=== PATIENT | female | born 1960 | race Caucasian/White ===

== ENCOUNTER 2019-05-17 18:10 | Outpatient (CLI) | payer OTHER, SELFPAY ==
--- NOTE | ~2019-05-17 | XR_ITS ---
EXAMINATION: XR chest 2V 05/17/2019 18:29 INDICATION: Cough and chest tightness. History of asthma. PROCEDURE: 2 view chest COMPARISON: No prior studies for comparison. FINDINGS: The lungs are clear. The cardiomediastinal silhouette is within normal limits. There are no pleural effusions. There is no pneumothorax suspected. IMPRESSION: 1: NO ACUTE CARDIOPULMONARY DISEASE. Reviewed, dictated and finalized at location A. COOPER HELPER
== END 2019-05-17 18:11 | disposition home or self-care (01) ==
LOC: ANHIMG 18:14
PROVIDERS: PCP Family Medicine; Visit Provider Physician Assistant Medical
DX: R05 Cough (principal)
CPT/HCPCS: 71046

== ENCOUNTER 2020-06-05 12:29 | Outpatient (CLI) | payer OTHER, SELFPAY ==
--- NOTE | 2020-06-05 | ECG_ITS ---
Measurements Intervals [place] Rate: 81 P: 61 PA: 200 QRS: 36 QRSD: 90 T: 51 QT: 358 QTc: 417 Interpretive Statements SINUS RHYTHM POSSIBLE LEFT ATRIAL ENLARGEMENT INCOMPLETE RIGHT BUNDLE BRANCH BLOCK BORDERLINE ECG Electronically Signed On 06-05-2020 13:54:57 [facility] by Devin Casper D.O.
[2020-06-05 13:03] LABS: Hematocrit 45.5 % (37.0-47.0); Hemoglobin 14.5 g/dL (12.0-15.0)
[2020-06-05 13:11] LABS: Urine Cotinine NEGATIVE
[2020-06-05 13:12] LABS: Albumin Level 4.2 g/dL (3.5-5.1); Estimated Glomerular Filt Rate 57
[2020-06-05 13:31] LABS: Hemoglobin A1C 10.8 % (<5.7)
== END 2020-06-05 12:30 | disposition home or self-care (01) ==
PROVIDERS: PCP Family Medicine; Visit Provider Orthopaedic Surgery
DX: M17.11 Unilateral primary osteoarthritis, right knee (principal); E03.9 Hypothyroidism, unspecified; E78.2 Mixed hyperlipidemia; R73.03 Prediabetes; I45.10 Unspecified right bundle-branch block
CPT/HCPCS: 80307; 82040; 82565; 83036; 85014; 85018; 93005

== ENCOUNTER 2020-07-11 10:30 | Outpatient (CLI) | payer OTHER, SELFPAY ==
[2020-07-11 10:58] LABS: Hemoglobin A1C 8.3 % (<5.7)
[2020-07-11 11:00] LABS: Alanine Aminotransferase 43 U/L (4-35); Albumin Level 4.5 g/dL (3.5-5.1); Alkaline Phosphatase 68 U/L (38-126); Anion Gap 4 mmol/L (8-16); Aspartate Amino Transferase 54 U/L (14-36); Blood Urea Nitrogen 13 mg/dL (7-17); Calcium 9.3 mg/dL (8.4-10.2); Carbon Dioxide 34 mmol/L (22-30); Chloride 103 mmol/L (98-107); Estimated Glomerular Filt Rate 51; Glucose 107 mg/dL (65-105); Sodium 141 mmol/L (137-145)
== END 2020-07-11 10:31 | disposition home or self-care (01) ==
PROVIDERS: PCP Family Medicine; Visit Provider Family Medicine
DX: R73.9 Hyperglycemia, unspecified (principal)
CPT/HCPCS: 36415; 80053; 83036

== ENCOUNTER 2020-07-26 08:35 | Outpatient (CLI) | payer OTHER, SELFPAY ==
--- NOTE | ~2020-07-26 | NM_ITS ---
EXAMINATION: NM sam stress w perfusion DATE: 07/26/2020 12:40 INDICATION: Cardiomegaly. TECHNIQUE: Rest images were obtained following intravenous administration of 9.8 mCi Tc99m tetrofosmi n (Myoview). The patient was infused intravenously with Lexiscan (regadenoson). Then, 30.1 mCi Tc99m tetrofosmin (Myoview) was administered intravenously, and supine and prone stress images were obtaine d. Data was reconstructed into short axis and horizontal and vertical long axis SPECT images. Gated S PECT images were also obtained. COMPARISON: Myocardial perfusion imaging 05/09/2016 FINDINGS: There is a moderate-sized, mild, fixed perfusion defect involving mid anteroseptal and apic al to mid anterior segments of left ventricle, consistent with infarct. No reversible component to herrera ggest ischemia. There is no segmental wall motion abnormality. Left ventricular ejection fraction m easures 70%. IMPRESSION: 1. Moderate-sized area of mild infarct involving mid anteroseptal and apical to mid anterior segments of left ventricle. 2. Normal left ventricular ejection fraction measuring 70%. Reviewed, dictated and finalized at location A.
--- NOTE | 2020-07-26 08:48 | EST_ITS ---
Patient Info Name: Kiki Horowitz Age: 59 years : 1960 Gender: Female Ht: 66 in Wt: 210 lbs BSA: 2.14 m2 Exam Date: 07/26/2020 10:06 AM Exam Location: [facility] Stress Patient Status: Outpatient Admit Date: 07/26/2020 Staff Ordering Physician: Marv Chavez MD Attending Provider: Marv Chavez MD Exercise Technologist: Montserrat Singh CT Exercise Physician: Devin Casper DO Exam Type: CA stress sam w NM Study Info Indications I51.7 - Cardiomegaly Z01.810 - Encounter for preprocedural cardiovascular examination A regadenoson stress test was performed. Summary 1. 1. Negative lexiscan stress test for ischemic ST changes by ECG criteria. 2. 2. Stable hemodynamics throughout the test. 3. 3. Nuclear scan to follow and will be reported separately. Please correlate with it. 4. 4. Patient informed of the above results. Protocol: Lexiscan Stress ECG Details Stage: REST Duration (min): 12 min : 45 sec HR (bpm): 82 SBP (mmHg): 103 DBP (mmHg): 80 Stage: STAGE 1 Duration (min): 1 min : 0 sec HR (bpm): 96 SBP (mmHg): 106 DBP (mmHg): 81 Stage: RECOVERY Duration (min): 1 min : 0 sec HR (bpm): 110 SBP (mmHg): 106 DBP (mmHg): 81 Stage: RECOVERY Duration (min): 2 min : 0 sec HR (bpm): 106 SBP (mmHg): 106 DBP (mmHg): 81 Stage: RECOVERY Duration (min): 2 min : 57 sec HR (bpm): 102 SBP (mmHg): 101 DBP (mmHg): 72 Rest HR: 82 bpm Peak HR: 110 bpm Rest Sys BP: 103 mmHg Peak Sys BP: 106 mmHg Max Pred HR: 161 bpm % Max Pred HR: 68 % Target HR: 137 bpm Max RPP: 11,660 bpm*mmHg Termination Reason: Completed protocol Cardiac Symptoms: Shortness of breath Total Time: 1 min : 0 sec Rest Grey BP: 80 mmHg Peak Grey BP: 81 mmHg Total Dose: 0.4 mg Resting ECG Sinus rhythm. Stress ECG No ST changes. Arrhythmias None. Report Signatures
== END 2020-07-26 08:36 | disposition home or self-care (01) ==
PROVIDERS: PCP Family Medicine; Visit Provider Family Medicine
DX: I51.7 Cardiomegaly (principal)
CPT/HCPCS: 78452; 93017; A9502; J2785

== ENCOUNTER 2021-08-14 11:11 | Outpatient (CLI) | payer OTHER, SELFPAY ==
[2021-08-14 12:06] LABS: Alanine Aminotransferase 38 U/L (6-35); Albumin Level 4.3 g/dL (3.5-5.1); Alkaline Phosphatase 100 U/L (38-126); Anion Gap 11 mmol/L (8-16); Aspartate Amino Transferase 42 U/L (14-36); Bilirubin,Total 0.6 mg/dL (0.2-1.3); Blood Urea Nitrogen 17 mg/dL (7-17); Calcium 8.9 mg/dL (8.4-10.2); Carbon Dioxide 28 mmol/L (22-30); Chloride 100 mmol/L (98-107); Cholesterol 141 mg/dL (0-200); Estimated Glomerular Filt Rate > 60; Glucose 314 mg/dL (65-110); HDL Direct 36 mg/dL; Potassium 4.7 mmol/L (3.4-5.0); Sodium 139 mmol/L (137-145); Triglycerides 174 mg/dL (<150)
[2021-08-14 12:17] LABS: LDL Cholesterol Direct 69 mg/dL
[2021-08-14 12:37] LABS: Hemoglobin A1C 10.8 % (<5.7)
== END 2021-08-14 11:12 | disposition home or self-care (01) ==
LOC: ANHLAB 11:14
PROVIDERS: PCP Family Medicine; Visit Provider Family Medicine
DX: E78.2 Mixed hyperlipidemia (principal); E66.9 Obesity, unspecified
CPT/HCPCS: 36415; 80053; 80061; 83036; 84443

== ENCOUNTER → 2022-09-08 10:09 | Outpatient (CLI) | payer OTHER, SELFPAY ==
--- NOTE | ~2022-09-08 | MR_ITS ---
EXAMINATION: MR shoulder LT wo con DATE: 09/08/2022 11:06 INDICATION: Left shoulder pain. TECHNIQUE: Magnetic resonance imaging (MRI) of the left shoulder was performed without intravenous co ntrast. Sequences included axial PD-weighted FS FSE, coronal oblique PD-weighted FS FSE and T2-weight ed FS FSE, and sagittal oblique T2-weighted FS FSE and T1-weighted FSE. COMPARISON: None. FINDINGS: Coracoacromial arch: The acromion undersurface is curved in morphology with anterior hook (type III). There is severe acro mioclavicular joint osteoarthritis. There is mild subacromial/subdeltoid bursitis. Rotator cuff: There is mild supraspinatus tendinopathy. There is severe distal infraspinatus tendinopathy. There is mild teres minor tendinopathy. There is mild subscapularis tendinopathy. There is no asymmetric fatt y atrophy of the rotator cuff muscle bellies. Biceps tendon and glenoid labrum: Biceps tendon is in bicipital groove. There is mild intra-articular biceps tendinopathy. There is mul tifocal tearing of the glenoid labrum. Fluid: There is a moderate-sized glenohumeral joint effusion. Bones/cartilage: There is partial-thickness cartilage loss of humeral head, deep posteriorly. There is partial-thickne ss cartilage loss of glenoid, deep at the central articular surface. Osteophytes are noted. IMPRESSION: 1. Severe rotator cuff tendinopathy. No tear. 2. Moderate glenohumeral joint chondrosis. 3. Severe acromioclavicular joint osteoarthritis. 4. Moderate-sized glenohumeral joint effusion. 5. Mild intra-articular biceps tendinopathy. 6. Mild subacromial/subdeltoid bursitis. Reviewed, dictated and finalized at location A.
== END ==
PROVIDERS: PCP Family Medicine; Visit Provider Physician Assistant
DX: M19.012 Primary osteoarthritis, left shoulder (principal); M75.52 Bursitis of left shoulder; M25.412 Effusion, left shoulder
CPT/HCPCS: 73221

== ENCOUNTER 2022-10-15 06:18 | Day surgery (SDC) | payer OTHER, SELFPAY ==
[2022-09-25 13:32] VITALS: BMI 37.9
[2022-10-02 08:14] VITALS: BMI 37.0
--- NOTE | 2022-10-15 06:07 | PM.HPGS ---
History of Present Illness History of Present Illness Consent: Risks, benefits, and alternatives have been discussed and questions answered. Patient agrees to proceed with procedure. Chief complaint: Lesion Upper Lip Narrative: Kiki Horowitz is a 61 year old female Review of Systems Review of Systems: All systems reviewed & are unremarkable except as noted in HPI and below Constitutional: Constitutional: Reports as per HPI Eyes: Eyes: Reports as per HPI ENT: Reports as per HPI Cardiovascular: Cardiovascular: Reports as per HPI Respiratory: Respiratory: Reports as per HPI Gastrointestinal: Gastrointestinal: Reports as per HPI [facility] Past Medical History Medical History Abnormal nuclear stress test Acute rheumatoid arthritis Acute stasis dermatitis of left lower extremity Allergy to iodinated contrast Chest pain COVID-19 9.19.20 Depression Family history of malignant neoplasm of breast Generalized anxiety disorder Graves disease Hypothyroid Meniere disease Mixed hyperlipidemia Obesity (BMI 30-39.9) Osteoarthritis of right knee Prediabetes Preop cardiovascular exam Primary osteoarthritis of right hip Restless leg syndrome 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 (01/07/18) Surgical History Surgical History H/O thyroidectomy (~1976) History of (~1980) History of (~1992) History of eyelid surgery History of foot surgery (~1981) History of foot surgery (~1983) History of hysterectomy History of tonsillectomy (~1969) History of total left hip arthroplasty (~11/24/17) History of total left knee replacement (~05/26/17) Presence of left artificial hip joint Presence of left artificial knee joint Family History Family History Grandparent Diabetes mellitus Family history of cardiovascular disease Family history of malignant neoplasm of breast Mother Depression Sibling Depression Father Family history of cardiovascular disease Other Family history of arthritis Family history of congenital heart disease Family history of malignant neoplasm Family history of thyroid disease Social History Social History Social History: Caffeine- coffee occasionally Smoking status: Never smoker Second hand tobacco smoke exposure: No Smoking end date: 03/30/80 Alcohol intake: current Alcohol use details: rarely Substance use: never Substance use type: does not use Lack of Transportation: No Lack of Food: Never True Current Housing: I Have Housing Concerned About Future Housing: No Difficulty Paying Gas/Electric Bills: No Difficulty Paying for Meds: No Currently Unemployed: No Education: High School Diploma/GED Difficulty w/ Childcare or Family Care: No Living arrangements: with family Spiritual care concerns: No Meds Home Medications and Allergies Home Medications Medication Instructions Recorded Confirmed Type albuterol sulfate 90 mcg/actuation 2 inhalation inhalation Q4H PRN 05/18/19 10/02/22 Rx aerosol inhaler (ProAir HFA) shortness of breath or wheezing #8.5 grams trazodone 100 mg tablet See Rx Instructions PO DAILY PRN 10/31/20 10/02/22 Rx insomnia #90 tabs triamcinolone acetonide 0.1 % 1 applic topical TID PRN itching 05/10/21 10/02/22 Rx topical cream #80 grams metformin 500 mg tablet,extended 1,000 mg PO DAILY #180 tabs 08/16/21 10/02/22 Rx release 24hr diclofenac sodium 75 mg 75 mg PO BID #180 tabs 03/13/22 10/02/22 Rx tablet,delayed release duloxetine 60 mg capsule,delayed 60 mg PO BID #180 caps 03/13/22 10/02/22 Rx release (Cymbalta) levothyroxine 175 mcg tablet 175 mcg PO DAILY #90 tabs 03/13/22 10/02/22 Rx tramadol 50 mg tablet 50
--- NOTE | 2022-10-15 06:12 | WPDHPUPDATE1 ---
History and Physical Update Update Date/Time: 10/15/22 06:12 History and Physical has been reviewed, including an updated exam of the patient. There are NO changes in the patient's condition. Risks, benefits, and alternatives have been discussed and questions answered. Patient agrees to proceed with procedure.
[2022-10-15 06:55] VITALS: BP 138/89; PULSE 108; RESP 16; TEMP 37.1; O2SAT 93
[2022-10-15 07:00] VITALS: BMI 37.8
[2022-10-15 07:20] VITALS: BP 147/90; PULSE 94; RESP 16; O2SAT 96
[2022-10-15 07:25] VITALS: PULSE 94
[2022-10-15] MEDS: LIDOCAINE HCL 1% LOCAL INJ 20 ML VIAL INFILTRATE (07:25)
[2022-10-15 07:30] VITALS: BP 134/90; PULSE 97; RESP 12; O2SAT 97
--- NOTE | 2022-10-15 07:36 | W.PM.PROC2 ---
Procedure Note - Detailed Date of Procedure 10/15/22 Pre-op Diagnosis Lesion Upper Lip Post-op Diagnosis Same Procedure Performed excision cystic lesion right upper lip Surgeon Ubaldo Bautista MD Anesthesia Local Indications cystic lesion upper lip Findings cystic lesion upper lip Description of Procedure after induction of local anesthesia with 1% xylocaine elliptical incision was made around the cystic lesion was excised hemostasis was obtained with bipolar electrocautery and closed with 250 chromic Estimated Blood Loss 0 Pathology Yes Complications No immediate complications Condition Stable Disposition Same day
[2022-10-15 07:42] VITALS: BP 146/101; PULSE 85; RESP 20; O2SAT 100
== END 2022-10-15 07:50 | disposition home or self-care (01) ==
PROVIDERS: PCP Family Medicine; Visit Provider Otolaryngology
PROC: (CPT 40810; principal; 2022-10-15 07:30)
DX: K13.0 Diseases of lips (principal)
CPT/HCPCS: 11440

== ENCOUNTER 2022-10-15 09:00 | Outpatient (NON) | payer OTHER, SELFPAY | END 2022-10-15 09:01 | disposition home or self-care (01) | PROVIDERS: PCP Family Medicine; Visit Provider Otolaryngology | DX: K13.0 Diseases of lips (principal) | CPT/HCPCS: 88305 ==

== ENCOUNTER 2022-10-23 19:45 | Outpatient (NON) | payer OTHER, SELFPAY | END 2022-10-23 19:46 | disposition home or self-care (01) | LOC: ANHLAB 19:45 | PROVIDERS: PCP Family Medicine; Visit Provider Physician Assistant | DX: N39.0 Urinary tract infection, site not specified (principal) | CPT/HCPCS: 87086; 87088 ==

== ENCOUNTER 2023-02-04 12:07 | Outpatient (NON) | payer OTHER, SELFPAY | END 2023-02-04 12:08 | disposition home or self-care (01) | LOC: ANHGOSHLAB 12:09 | PROVIDERS: PCP Family Medicine; Visit Provider Family Medicine | DX: R31.9 Hematuria, unspecified (principal) | CPT/HCPCS: 87086; J2704 ==

== ENCOUNTER 2023-03-30 12:26 | Outpatient (CLI) | payer OTHER, SELFPAY ==
--- NOTE | ~2023-03-30 | XR_ITS ---
EXAM: XR hip RT 2V w AP pelvis DATE: 03/30/2023 12:52 HISTORY: M25.551 - Pain in right hip, CHRONIC . COMPARISON: 09/19/2019, images only. FINDINGS: Decreased mineralization. No fracture or dislocation. No lytic or blastic lesion. Lumbar d egenerative disc disease. Moderate right hip osteoarthritis. Partially visualized uncomplicated appea ring left hip arthroplasty hardware. No erosion or periosteal change. Soft tissues within normal limi ts. IMPRESSION: No acute osseous finding in the right hip. Reviewed, dictated and finalized at location K. EDGER
--- NOTE | ~2023-03-30 | XR_ITS ---
EXAM: XR knee RT min 4V DATE: 03/30/2023 12:52 HISTORY: M17.11 - Unilateral primary osteoarthritis, rt knee. CHRONIC . COMPARISON: 09/08/2022, images only. FINDINGS: Decreased mineralization. No fracture or dislocation. Cortical irregularity in the lateral cortex of the proximal fibula which is a chronic finding, presumably old healed fracture or burnt ou t benign bone lesion. No lytic or blastic lesion. Tricompartmental right knee osteoarthritis, severe in the medial compartment. No erosion or periosteal change. Soft tissues within normal limits. IMPRESSION: No acute osseous finding in the right knee. Reviewed, dictated and finalized at location K. HING PRESS OPERATOR
== END 2023-03-30 12:27 | disposition home or self-care (01) ==
LOC: ANHIMG 12:28
PROVIDERS: PCP Family Medicine; Visit Provider Orthopaedic Surgery
DX: M25.551 Pain in right hip (principal); M17.11 Unilateral primary osteoarthritis, right knee
CPT/HCPCS: 73502; 73564

== ENCOUNTER 2023-05-02 10:03 | Outpatient (CLI) | payer OTHER, SELFPAY ==
[2023-05-02 11:26] LABS: Alanine Aminotransferase 47 U/L (6-35); Albumin Level 4.3 g/dL (3.5-5.1); Alkaline Phosphatase 73 U/L (38-126); Anion Gap 8 mmol/L (8-16); Aspartate Amino Transferase 38 U/L (14-36); Bilirubin,Total 1.1 mg/dL (0.2-1.3); Blood Urea Nitrogen 14 mg/dL (7-17); Calcium 9.5 mg/dL (8.4-10.2); Carbon Dioxide 31 mmol/L (22-30); Chloride 100 mmol/L (98-107); Cholesterol 131 mg/dL (0-200); Estimated Glomerular Filt Rate > 60; Glucose 116 mg/dL (65-110); HDL Direct 38 mg/dL; Sodium 139 mmol/L (137-145); Triglycerides 127 mg/dL (<150)
[2023-05-02 11:27] LABS: Hemoglobin A1C 7.4 % (<5.7)
[2023-05-02 11:39] LABS: LDL Cholesterol Direct 74 mg/dL
[2023-05-02 12:12] LABS: Creatinine Urine 147.9 mg/dL
[2023-05-02 12:17] LABS: MALB Creatinine Ratio 11.1 mg/g (0-30); Microalbumin Urine Random 16.4 mg/L (0-16.7)
== END 2023-05-02 10:04 | disposition home or self-care (01) ==
LOC: ANHLAB 10:04
PROVIDERS: PCP Family Medicine; Visit Provider Family Medicine
DX: N39.0 Urinary tract infection, site not specified (principal); E03.9 Hypothyroidism, unspecified; E11.9 Type 2 diabetes mellitus without complications; E78.2 Mixed hyperlipidemia
CPT/HCPCS: 36415; 80053; 80061; 82043; 83036; 84443; 87086

== ENCOUNTER 2024-06-02 08:35 | Outpatient (CLI) | payer OTHER, SELFPAY ==
--- OUTSIDE RECORDS SUMMARY | 2024-06-02 08:57 | XMS_ITS | Clinical Summary ---
Author Organization [facility] D Address [address] [place] [address] Care Team Providers Care Daycare Director Name Role Phone Marv Chavez MD Primary Care Provider [phone] Feliciano Dominguez MD Unavailable [phone] Allergies Active Allergy Reactions Criticality Noted Date Comments Acetaminophen-Codeine Other (See comments) Low 12/28 passed out three different times Iodinated Contrast Media Hives,Shortness of breath High Sulfa (Sulfonamide Antibiotics) Medications multivitamin tablet Active levothyroxine (SYNTHROID) 175 mcg tablet Take 1 tablet (175 mcg total) by mouth daily Active rOPINIRole (REQUIP) 3 mg tablet Take 1 tablet (3 mg total) by mouth nightly Active metFORMIN (GLUMETZA) 500 mg 24 hr tablet Take 1 tablet (500 mg total) by mouth 2 (two) times a day with meals Active atorvastatin (LIPITOR) 10 mg tablet Take 1 tablet (10 mg total) by mouth daily 02/28/20 21 Active cyclobenzaprine (FLEXERIL) 10 mg tablet TAKE 1 TABLET BY MOUTH THREE TIMES DAILY FOR 10 DAYS FOR MUSCLE SPASMS. NO DRIVING 05/10/19 22 Active fluticasone propionate (FLONASE) 50 mcg/actuation nasal sprayIndications:C hronic otitis media of left ear with effusion Administer 2 sprays into each nostril daily 16 g 11 05/23/[address] (CYMBALTA) 60 mg capsule Take 1 capsule (60 mg total) by mouth daily 05/18/19 24 Active semaglutide 0.25 mg or 0.5 mg (2 mg/3 mL) pen injector injection Inject 0.5 mg under the skin every 7 days Active ascorbic acid (VITAMIN C) 500 mg tablet,chewableInd ications:Vitamin deficiency prevention Take 1 tablet/chew tab (500 mg total) by mouth daily 30 tablet/chew tab 07/22/19 24 Active aspirin 325 mg enteric coated tablet Take 1 tablet (325 mg total) by mouth daily 42 tablet 07/22/19 24 025 Active ferrous sulfate 325 mg (65 mg of elemental iron) tablet Take 1 tablet (325 mg total) by mouth daily with breakfast 30 tablet 07/22/19 24 025 Active ondansetron ODT (ZOFRAN-ODT) 4 mg disintegrating tablet Take 1 tablet (4 mg total) by mouth every 6 (six) hours as needed for nausea or vomiting 20 tablet 2 07/21/19 24 Active oxyCODONE-acetamin ophen (PERCOCET) 5-325 mg per tablet Take 1-2 tablets by mouth every 4 (four) hours as needed for pain 40 tablet 07/21/19 Active Additional Information Patient not taking.Reported on 09/14/2023 senna-docusate (PERICOLACE) 8.6-50 mg Take 2 tablets by mouth 2 (two) times a day 60 tablet 2 07/21/19 Active traZODone (DESYREL) 100 mg tablet Take 1 tablet (100 mg total) by mouth nightly as needed for sleep Active albuterol HFA (PROVENTIL HFA,VENTOLIN HFA,PROAIR HFA) 90 mcg/actuation inhaler Inhale 2 puffs every 6 (six) hours as needed for wheezing Active cyclobenzaprine (FLEXERIL) 10 mg tablet Take 1 tablet (10 mg total) by mouth daily 30 tablet 08/23/19 24 Active Additional Information Patient not taking.Reported on 09/14/2023 Active Problems Problem Noted Date Diagnosed Date S/P total right hip arthroplasty 09/14/2023 Tachycardia 08/22/2023 Right leg swelling 08/22/2023 Hypothyroidism 08/22/2023 Type 2 diabetes mellitus 08/22/2023 History of hip replacement 08/22/2023 Positive D dimer 08/21/2023 Primary osteoarthritis of right hip 07/13/2023 Dysfunction of left eustachian tube 06/13/2021 Assessment & Plan (06/13/2021 9:09 AM CDT): Continue Flonase daily may increase to twice daily Consider switching to Astelin Continue Xyzal daily may increase to twice daily Consider Pepcid 40 mg at bedtime for 6-8 weeks to look for improvement mucus sensation in the morning Call for Audiogram order if hearing loss occurs Watch for increased symptoms after caffeine intake or salt intake Chronic otitis media of left ear with effusion 0 05/23/2021 Assessment & Plan (05/23/2021 10:53 AM ACID CRANE OPERATOR): Hearing test - [facility] Doxycycline twice daily for 10 days Flonase 2 sprays into each nostril while looking down over the sink, do not sniff in or blow nose after use for at least 30 minutes Consider ear tube placement in the Office based on Hearing test results Follow up in 3 weeks Sensorineural hearing loss ( SNHL) of left ear with unrestricted hearing of right ear 05/23/2021 Assessment & Plan (05/23/2021 10:52 AM ACID CRANE OPERATOR): Hearing test - [facility] Doxycycline twice daily for 10 days Flonase 2 sprays into each nostril while looking down over the sink, do not sniff in or blow nose after use for at least 30 minutes Impacted cerumen of left ear 05/23/2021 Dizziness and giddiness 05/23/2021 Assessment & Plan (05/23/2021 10:52 AM ACID CRANE OPERATOR): Hearing test - [facility] Doxycycline twice daily for 10 days Flonase 2 sprays into each nostril while looking down over the sink, do not sniff in or blow nose after use for at least 30 minutes Cough Immunizations Immunization Administration Dates Next Due Pfizer SARS-CoV-2 Monovalent Vaccination (12+ Yrs) PURPLE 06/27/2020,05/30/2020 Surgical History Surgery Date Site/Laterality Comments SECTION THYROID SURGERY Bilateral REPLACEMENT TOTAL HIP LATERAL POSITION Le ft Dr. Ji REPLACEMENT TOTAL KNEE Left Dr. Ji JOINT REPLACEMENT FOOT SURGERY CHOLECYSTECTOMY HYSTERECTOMY CYST REMOVAL EYE SURGERY eyelid surgery TONSILLECTOMY LAPAROSCOPIC OVARIAN CYSTECTOMY HERNIA REPAIR Medical History Medical History Date Comments Thyroid disease Depression Pre-diabetes COVID-19 virus infection Type 2 diabetes mellitus (HCC) Hypothyroidism Anemia MN (myocardial infarction) (HCC) mild MN during covid occurence. Graves disease Arthritis Asthma Family History Medical History Relation Name Comments Ovarian cancer Mother Ovarian cance r - (Added by TW Conv) Relation Name Status Comments Father Alive Mother Social History Tobacco Use Types Packs/Day Years Used Date Smoking Tobacco: Former Smokeless Tobacco: Never Tobacco Cessation:Counseling Given: Not Answered Alcohol Use Standard Drinks/Week Comments Yes 0 (1 standard drink = 0.6 oz pur e alcohol) occassional AUDIT-C Answer Date Recorded Q1: How often do you have a drink containing alc ohol? Monthly or less 08/21/2023 Q2: How many drinks containi ng alcohol do you have on a typical day when you are drinking? 1 or 2 08/21/2023 Q3: How often do you have si x or more drinks on one occasion? Never 08/21/2023 PHQ-2 Answer Date Recorded PHQ-2 Total Score 0 08/21/2023 Personal Safety Answer Date Recorded Have you ever been in or are you currently in a harmful physical or emotional relationship or is someone making you feel afraid or unsafe? Denies 08/21/2023 Comments No Sex and Gender Information Value Date Recorded Sex Assigned at Not on file Legal Sex Female 6:18 AM ACID CRANE OPERATOR Gender Identity Not on file Sexual Orientation Not on file Obstetrics History Last Filed Vital Signs Vital Sign Reading Time Taken Comments Blood Pressure 122/81 11/12/2023 9:42 AM CDT Pulse 111 11/12/2023 9:42 AM CDT Temperature 36.6 C (97.9 F) 08/23/2023 7:57 AM CDT Respiratory Rate 18 08/23/2023 7:57 AM CDT Oxygen Saturation 92% 08/23/2023 7:57 AM CDT Inhaled Oxygen Concentration - - Weight 88.3 kg (194 lb 9.6 oz) 11/12/2023 9:42 A M CDT Height 163.8 cm (5' 4.5 ) 11/12/2023 9:42 AM CDT Body Mass Index 32.89 11/12/2023 9:42 AM CDT Plan of Treatment Health Maintenance Due Date Last Done Comments Albumin Creatinine Ratio, Urine 1960 Breast Cancer Screening-Mammogram 1960 Colon Cancer Screening-Colonoscopy 1960 Hepatitis C Screening 1960 Dilated Eye Exam 1960 Foot Exam 1960 Lipid Panel 1960 DTaP/Tdap/Td Vaccine (1 - Tdap) 11/18/1971 Hepatitis B Screening 1978 Regular Well Visit/Exam 18-64 1978 Pneumococcal vaccine <65 (1 of 2 - PCV) 11/18/1979 Zoster Vaccine (1 of 2) 2010 Covid-19 Vaccine (3 - 2023-2 5 season) 2023 06/27/2020, 05/30/2020 Influenza Vaccine (#1) 2023 Hemoglobin A1C 01/02/2024 07/03/2023 Depression Screening 08/20/2024 08/21/2023, 08/21/19 24 eGFR 08/21/2024 08/22/2023, 07/29, 07/21/2023, Additional history exists Medical Devices Implanted Type Area Instrument Installer Device Identifier Shelf Expiration Date Model / Serial / Lot [employer] [place] 52mm 36mm Hip Neutral Liner Acetabular Altrx Sterile Latex Free [id number] - [id number] Implanted:Qty: 1 on 07/20/2023 by eFliciano Dominguez MD at [facility] Right: Hip [employer] [id number] 04/29/2028 [id number] / / [id number] [employer] [place] 52mm Sector Hip Shell Acetabular Gription Sterile Latex Free [id number] - [id number] Implanted:Qty: 1 on 07/20/2023 by Feliciano Dominguez MD at [facility] Right: Hip [employer] [id number] 07/27/2032 [id number] / / [id number] [employer] [place] 105mm Collar Hip 5 High Offset Stem Femoral [id number] - [id number] Implanted:Qty: 1 on 07/20/2023 by Feliciano Dominguez MD at [facility] Right: Hip [employer] [id number] 07/27/2032 [id number] / / [id number] [employer] Articul/[place] 36mm Cementless Hip +1.5mm 03/12 Taper Head Femoral Latex Free [id number] - [id number] Implanted:Qty: 1 on 07/20/2023 by Feliciano Dominguez MD at [facility] Right: Hip [employer] [id number] 05/27/2028 [id number] / / [id number] Procedures Procedure Name Priority Date/Time Associated Diagnosis Comments EGFR Routine 08/22/2023 2:39 AM CDT HEMOGLOBIN A1C Routine 07/03/2023 1:55 PM CDT Pre-operative exam from Last 3 Months or Most Recently Relevant to Health Maintenance Results * eGFR (08/22/2023 2:39 AM CDT) eGFR 81 >=60 mL/min/1. 73 m2 Comment: Interpretive Data Reference Interval Normal >/= 90 mL/min/1.73m2 Mildly decreased* 60 - 89 mL/min/1.73m2 Mildly to moderately decreased 45 - 59 mL/min/1.73m2 Moderately to severely decreased 30 - 44 mL/min/1.73m2 Severely decreased 15 - 29 mL/min/1.73m2 Kidney Failure < 15 mL/min/1.73m2 *Relative to young adult level Estimated glomerular filtration rate is determined by the 2020 CKD-EPI equation recommended by the National Kidney Foundation (A Unifying Approach to GFR Estimation: Recommendations of the NKF-ASK Task Force on Reassessing the Inclusion of Race in Diagnosing Kidney Disease, JASN 2020). The CKD-EPI equation should not be used for patients with unstable renal function and has not been validated in children and those over 70. Current interpretive data was last reviewed 2021. Blood 08/22/2023 2:39 AM CDT 08/22/2023 3:24 AM CDT Angela Alvarenga MD LAB BLOOD ORDERABLES Fin al Result Performing Organization Address [facility] Co de Phone Number [facility] ([place]) [address] [facility] [address] [place] [address] * (ABNORMAL) Hemoglobin A1c (07/03/2023 1:55 PM CDT) Hgb A1C 6.2(H) 4.0 - 5.6 % Estimated Average Glucose 131 mg/dL SHRUTI ASHRAF ([place]) Comment: The ADA recommends reporting an estimated Average Glucose (eAG) with all Hemoglobin A1c results using the equation derived from a study of 507 normal and diabetic adults. Minority populations were underrepresented and children were not included. (Diabetes Care 31:8545-4166, 2008). The eAG is not equivalent to a fasting glucose. Blood 07/03/2023 1:55 PM CDT 07/03/2023 3:36 PM CDT Feliciano Dominguez MD LAB BLOOD ORDERABLES Fin al Result Performing Organization Address [facility] de Phone Number [facility] ([place]) [address] [place] [address] from Last 3 Months or Most Recently Relevant to Health Maintenance [place] [address] [employer] Address: [facility] [id number] [place] [address] [place] [address] [employer] Address: [facility] [id number] [place] [address] Advance Directives For more information, please contact: [phone] * Full Code (Latest Code Status on File) Date Activated Date Inactivated Comments 08/21/2023 8:47 PM 08/23/2023 3:34 PM * Full Code Date Activated Date Inactivated Comments 07/20/2023 4:16 PM 07/21/2023 4:42 PM Care Teams Daycare Director Relationship Specialty Start Date End Date Marv Chavez MD PCP - General 01/09/20 Feliciano Dominguez MD [address] [place] [address] [place] [address] Surgeon Orthopedic Surgery 07/21/23
--- OUTSIDE RECORDS SUMMARY | 2024-06-02 08:57 | XMS_ITS | Referral Summary ---
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): Hearing test - [facility] Doxycycline twice daily for 10 days Flonase 2 sprays into each nostril while looking down over the sink, do not sniff in or blow nose after use for at least 30 minutes Impacted cerumen of left ear 05/23/2021 Dizziness and giddiness 05/23/2021 Assessment & Plan (05/23/2021 10:52 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): Hearing test - [facility] Doxycycline twice daily for 10 days Flonase 2 sprays into each nostril while looking down over the sink, do not sniff in or blow nose after use for at least 30 minutes Cough Immunizations Immunization Administration Dates Next Due Pfizer SARS-CoV-2 Monovalent Vaccination (12+ Yrs) PURPLE 06/27/2020,05/30/2020 Social History Tobacco Use Types Packs/Day Years [...] on file Legal Sex 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 Gender Identity Not on file Sexual Orientation Not on file Last Filed Vital Signs Vital Sign Reading [...] 11/12/2023 9:42 AM CDT Plan of Treatment Not on file Medical Devices Implanted Type Area Section Plotter Operator Device Identifier Shelf Expiration Date Model / Serial / Lot [employer] [place] 52mm 36mm Hip Neutral Liner Acetabular Altrx Sterile Latex Free [id number] - [id number] Implanted:Qty: 1 on 07/20/2023 by Feliciano Dominguez MD at [facility] Right: Hip [employer] [id number] 04/29/2028 [id number] / / [id number] [employer] [place] 52mm Sector Hip Shell Acetabular Gription Sterile Latex Free [id number] - [id number] Implanted:Qty: 1 on 07/20/2023 by Feliciano Dominguez MD at [facility] Right: Hip [employer] [id number] 07/27/2032 [id number] / / [id number] [employer] Actis 105mm Collar Hip 5 High Offset Stem Femoral [id number] - [id number] Implanted:Qty: 1 on 07/20/2023 by Feliciano Dominguez MD at [facility] Right: Hip [employer] [id number] 07/27/2032 [id number] / / [id number] [employer] Articul/Jean [place] 36mm Cementless Hip +1.5mm 12/14 Taper Head Femoral Latex Free [id number] - [id number] Implanted:Qty: 1 on 07/20/2023 by Feliciano Dominguez MD at [facility] Right: Hip [employer] [id number] 05/27/2028 [id number] / / [id number] Procedures Procedure Name Priority Date/Time Associated Diagnosis [...] ORDERABLES Fin al Result Performing Organization Address [facility] Co de Phone Number [facility] ([place]) [address] [facility] [place] [address] * (ABNORMAL) Hemoglobin A1c (07/03/2023 1:55 PM CDT) Hgb A1C 6.2(H) 4.0 - 5.6 % Estimated Average Glucose 131 mg/dL [facility] Comment: The ADA recommends reporting an estimated Average Glucose (eAG) with all Hemoglobin A1c results using the equation derived from a study of 507 normal and diabetic adults. Minority populations were underrepresented and children were not included. (Diabetes Care 31:0973-0843, 2008). The eAG is not equivalent to a fasting glucose. Blood 07/03/2023 1:55 PM CDT 07/03/2023 3:36 PM CDT Feliciano Dominguez MD LAB BLOOD ORDERABLES Fin al Result Performing Organization Address [facility] Co de Phone Number [facility] ([place]) [address] [facility] [place] [address] from Last 3 Months or Most Recently Relevant to Health Maintenance Insurance [employer] Advance Directives For more information, please contact: [phone] * Full Code (Latest Code Status on File) Date Activated Date Inactivated Comments 08/21/2023 8:47 PM 08/23/2023 3:34 PM * Full Code Date Activated Date Inactivated Comments 07/20/2023 4:16 PM 07/21/2023 4:42 PM Care Teams Patient Carrier Relationship Specialty Start Date End Date Marv Chavez MD PCP - General 01/09/20 Feliciano Dominguez MD [address] [place] [address] [place] [address] Surgeon Orthopedic Surgery 07/21/23
[2024-06-02 13:09] LABS: Creatinine Urine 213.1 mg/dL
[2024-06-02 13:13] LABS: MALB Creatinine Ratio 6.2 mg/g (0-30); Microalbumin Urine Random 13.2 mg/L (0-16.7)
[2024-06-02 13:47] LABS: Alanine Aminotransferase 19 U/L (6-35); Albumin Level 4.2 g/dL (3.5-5.1); Alkaline Phosphatase 73 U/L (38-126); Anion Gap 9 mmol/L (4-12); Aspartate Amino Transferase 52 U/L (14-36); Bilirubin,Total 0.6 mg/dL (0.2-1.3); Blood Urea Nitrogen 17 mg/dL (7-17); Calcium 9.9 mg/dL (8.4-10.2); Carbon Dioxide 33 mmol/L (22-30); Chloride 99 mmol/L (98-107); Cholesterol 207 mg/dL (0-200); Estimated Glomerular Filt Rate > 60; Glucose 95 mg/dL (65-110); HDL Direct 35 mg/dL; Potassium 4.6 mmol/L (3.4-5.0); Sodium 141 mmol/L (137-145); Triglycerides 207 mg/dL (<150)
[2024-06-02 13:58] LABS: LDL Cholesterol Direct 107 mg/dL
[2024-06-02 14:16] LABS: Thyroid Stimulating Hormone 0.045 uIU/mL (0.465-4.680)
[2024-06-02 14:37] LABS: Hemoglobin A1C 5.3 % (<5.7)
== END 2024-06-02 08:36 | disposition home or self-care (01) ==
LOC: ANHGOSHLAB 08:37
PROVIDERS: PCP Family Medicine; Visit Provider Family Medicine
DX: E03.9 Hypothyroidism, unspecified (principal); E11.9 Type 2 diabetes mellitus without complications
CPT/HCPCS: 36415; 80053; 80061; 82043; 83036; 84443

== ENCOUNTER 2024-07-04 13:49 | Outpatient (CLI) | payer OTHER, SELFPAY ==
--- NOTE | ~2024-07-04 | XR_ITS ---
XR knee LT 3V 07/04/2024 14:37 Indication: Left knee pain Procedure: 3 views left knee Comparison: No prior studies for comparison. Findings: There is a left total knee arthroplasty. Prosthesis well seated. No fracture, subluxation o r dislocation. Small joint effusion. Impression: 1: No acute fracture. Reviewed, dictated and finalized at location A. Impression: 1: No acute fracture.
--- NOTE | ~2024-07-04 | XR_ITS ---
Left ankle Technique: AP, oblique, and lateral views were obtained. Clinical History: Pain Findings: No acute fracture or dislocation is seen. Osseous alignment is anatomic. Ankle mortise and other visualized joint spaces are preserved. Soft tissues are otherwise unremarkable. Impression: Unremarkable left ankle. Reviewed, dictated and finalized at location . Impression: Unremarkable left ankle.
== END 2024-07-04 13:50 | disposition home or self-care (01) ==
LOC: GOSHIMG 13:50
PROVIDERS: PCP Orthopaedic Surgery; Visit Provider Family Medicine
DX: M25.562 Pain in left knee (principal); M25.572 Pain in left ankle and joints of left foot
CPT/HCPCS: 73562; 73610